=== PATIENT | female | born 2000 | race Caucasian/White ===

== ENCOUNTER 2023-04-04 09:33 | Emergency (ER) | payer MEDICAID, SELFPAY ==
[2023-04-04 09:50] VITALS: BP 144/94; PULSE 85; RESP 16; TEMP 37.1; O2SAT 99; BMI 31.0
--- NOTE | 2023-04-04 09:51 | CRLHL7_ITS ---
For Patients: As a result of the Century Cures Act, medical imaging exams and procedure reports are released immediately into your electronic medical record. You may view this report before your referring provider. If you have questions, please contact your health care provider. INDICATION: BLEEDING IN EARLY COMPARISON: None. TECHNIQUE: Real-time smallwood-scale imaging of the pelvis was performed. FINDINGS: Circumscribed structure within the right adnexa between the right ovary and uterus measures 1.8 x 1.5 x 1.5 cm containing a central area of fluid. Small amount of adjacent pelvic free fluid is present. No intrauterine . No abnormal blood flow. The left ovary and right ovary both appear normal. There is a corpus luteal right ovarian cyst measuring 1.9 x 1.2 x 1.6 cm. IMPRESSION: Right adnexal ectopic . Mild pelvic free fluid. No IUP. Called to Dr. Alvarado 10:56 a.m. 04/04/2023. Dictated by Pranay Melgar MD @ 04/04/2023 10:56:31 AM (Electronically Signed)
--- NOTE | 2023-04-04 09:53 | ED.GENADULT ---
HPI - General Adult General Time Seen by Provider: 09:53 Date Seen: 04/04/23 Chief complaint: Vaginal Bleeding Stated complaint: Abdominal pain Time Seen by Provider: 04/04/23 09:47 Source: patient Mode of arrival: ambulatory Limitations: no limitations History of Present Illness HPI narrative: Patient is a 23-year-old female who is about 7 weeks by last menstrual period February 14. She had a positive test. She has had bleeding vaginally over the day and some lower abdominal cramping. She has not passed any tissue or clots. She has had no fevers chills no other systemic signs of illness. The patient has had no chest pain breathing problem, she denies other issues. Related Data Home Medications Medication Instructions Recorded Confirmed folic acid 1 mg tablet 1 mg PO DAILY 04/04/23 04/04/23 Allergies Allergy/AdvReac Type Severity Reaction Status Date / Time No Known Drug Allergies Allergy Verified 04/04/23 09:52 Review of Systems Status of ROS: Reports: 6 or more systems reviewed and unremarkable except as noted in History and below PFSH PFS Social History Smoking Status: Never smoker How often do you have a drink containing alcohol: never How often do you have six or more drinks on one occasion: Never AUDIT-C Alcohol total score: 0 Non-prescribed substance use: denies use Exam Narrative: Exam Narrative: Objective: Patient's vital signs look unremarkable and slightly hypertensive She is tearful Alert orient x3 In no apparent distress otherwise Abdomen benign negative CVA tenderness Extremities are no edema neurologic nonfocal Abdomen is benign soft as mention no palpable masses. Const: Vital Signs, click to edit/add: Vital Signs - 24 hr 04/04/23 09:50 Temperature 98.8 F Pulse Rate [Pulse Oximeter] 85 Respiratory Rate 16 Blood Pressure [Ri t Upper Arm] 144/94 H Pulse Oximetry 99 Oxygen Delivery Me thod Room Air Course Vital Signs Vital signs: Initial Vital Signs Temperature 98.8 F 04/04/23 09:50 Temperature Source Temporal Artery Scan 04/04/23 09:50 Pulse Rate 85 04/04/23 09:50 Respiratory Rate 16 04/04/23 09:50 Blood Pressure 144/94 H 04/04/23 09:50 Blood Pressure Mean 110 H 04/04/23 09:50 Blood Pressure Position Supine 08/09/23 09:50 Pulse Oximetry 99 04/04/23 09:50 Oxygen Delivery Method Room Air 04/04/23 09:50 Vital Signs Temperature 98.8 F 04/04/23 09:50 Pulse Rate 85 04/04/23 09:50 Respiratory Rate 16 04/04/23 09:50 Blood Pressure 144/94 H 04/04/23 09:50 Pulse Oximetry 99 04/04/23 09:50 Oxygen Delivery Method Room Air 04/04/23 09:50 Temperature 98.8 F 04/04/23 09:50 Pulse Rate 85 04/04/23 09:50 Respiratory Rate 16 04/04/23 09:50 Blood Pressure 144/94 H 04/04/23 09:50 Pulse Oximetry 99 04/04/23 09:50 Oxygen Delivery Method Room Air 04/04/23 09:50 Medical Decision Making MDM Narrative Medical decision making narrative: 23-year-old female through an site interpreter reports that she had some vaginal bleeding some lower abdominal cramping. She is about 7 weeks estimated gestational age by LMP. Will check a quant quantitative HCG, blood type, laboratory studies, transvaginal ultrasound. She did have an OB appointment scheduled for today will review the studies and disposition pending findings. Addendum: 10:30 a.m. patient has a right ectopic per diesel technician. Have consulted with Dr. davis and jake get consult today. Addendum 10:59 a.m.: Doctor who here with site interpreter to discuss treatment options with the patient. Addendum 11:50 a.m.: Per , patient received Depo-Provera 150 im. Will get labs drawn per clinic order in 4 days, and follow up with primary care and OB. Orders will be placed from the clinic. Return if problems or concerns. Patient got patient got methotrexate today as well. Lab Data Labs: Lab Results 04/04/23 04/04/23 04/04/23 Range/Units 10:04 10:12 10:53 WBC 9.66 (4.50-11.00) K/uL RBC 4.65 (4.00-5.20) m/uL Hgb 13.6 (12.0-16.0) gm/dL Hct 40.5 (33.0-51.0) % MCV 87 (80-100) fL MCH 29 (26-34) pg MCHC 34 (32-36) gm/dL RDW Coeff of Jacquelyn 12.6 (11.5-15.5) % Plt Count 408 (140-440) K/uL Neut % (Auto) 67.2 (42.0-72.0) % Lymph % (Auto) 22.8 (20-44) % Bland % (Auto) 6.2 (0.0-11.0) % Eos % (Auto) 3.3 (0.0-7.0) % Baso % (Auto) 0.4 (0.0-3.0) % Neut # (Auto) 6.49 (1.7-7.0) K/uL Lymph # (Auto) 2.20 (0.90-2.90) K/uL Bland # (Auto) 0.60 (0.00-0.90) K/UL Eos # (Auto) 0.32 (0.00-0.50) K/uL Baso # (Auto) 0.04 (0.00-0.30) K/uL Abs Immat Gran (auto) 0.01 (0.00-0.30) K/uL Imm/Tot Granulo (auto) 0.1 % Sodium 138 (135-149) mmol/L Potassium 3.8 (3.6-5.1) mmol/L Chloride 104 (96-114) mmol/L Carbon Dioxide 27 (20-32) mmol/L BUN 9 (5-24) mg/dL Creatinine 0.6 (0.5-1.5) mg/dL Estimated Creat Clear 122.69 Estimated GFR 131 ml/min Glucose 98 (60-115) mg/dL Calcium 9.0 (8.4-10.6) mg/dL Total Bilirubin 0.5 (0.1-1.5) mg/dL Direct Bilirubin 0.0 (0.0-0.5) mg/dL AST 26 (12-35) U/L ALT 31 (4-35) U/L Alkaline Phosphatase 62 (40-150) U/L Total Protein 7.4 (6.0-8.3) g/dL Albumin 4.3 (3.3-5.0) g/dL HCG, Quant 105.36 mIU/mL Urine Color Red A (Yellow) Urine Appearance Cloudy A (Clear) Urine pH 5.5 (5.0-8.5) Ur Specific [place] >= 1.030 (1.000-1.030) Urine Protein 2+ A (Negative) Urine Glucose (UA) Negative (Negative) Urine Ketones Negative (Negative) Urine Blood 3+ A (Negative) Urine Nitrite Negative (Negative) Urine Bilirubin Negative (Negative) Urine Urobilinogen 0.2 (0.2-1.0) Ur Leukocyte Esterase Negative (Negative) Urine RBC >100 A (0-2) Urine WBC 0-2 (0-5) Ur Squamous Epith Cells Few (None-Few) Urine Bacteria Many A (None) Blood Type O Positive Discharge Plan Discharge Clinical Impression: Ectopic without intrauterine Patient Disposition: Home w/ Parent or Adult Condition: Stable Instructions: Ectopic (DC) Additional Instructions: Follow-up for labs in 4 days at the clinic as discussed, do not get for 3 months, Depo-Provera given now. This is per Dr. Alessandro lake order Activity Level: Light activity Prescriptions: No Action folic acid 1 mg tablet 1 mg PO DAILY Follow Up/Referrals: Provider,Not a Local [Primary Care Provider] - Stand Alone Forms: [employer] Info Instructions
[2023-04-04 10:10] LABS: Basophils Absolute Auto 0.04 K/uL (0.00-0.30); Basophils Percent Auto 0.4 % (0.0-3.0); Eosinophils Absolute Auto 0.32 K/uL (0.00-0.50); Eosinophils Percent Auto 3.3 % (0.0-7.0); Hematocrit 40.5 % (33.0-51.0); Hemoglobin* 13.6 gm/dL (12.0-16.0); Immature Granulocytes Abs Auto 0.01 K/uL (0.00-0.30); Immature Granulocytes Pct Auto 0.1 %; Lymphocytes Percent Auto 22.8 % (20-44); Mean Corpuscular HGB Conc 34 gm/dL (32-36); Mean Corpuscular Hemoglobin 29 pg (26-34); Mean Corpuscular Volume 87 fL (80-100); Monocytes Percent Auto 6.2 % (0.0-11.0); Neutrophils Absolute Auto 6.49 K/uL (1.7-7.0); Neutrophils Percent Auto 67.2 % (42.0-72.0); Platelet Count* 408 K/uL (140-440); RDW Coefficient of Variation % 12.6 % (11.5-15.5); Red Blood Count 4.65 m/uL (4.00-5.20); White Blood Count* 9.66 K/uL (4.50-11.00)
[2023-04-04 10:12] LABS: Slide Review Reflex No
[2023-04-04 10:20] LABS: Appearance Urine Cloudy (Clear); Bilirubin Urine Negative (Negative); Blood Urine 3+ (Negative); Color Urine Red (Yellow); Glucose Urine Negative (Negative); Ketones Urine Negative (Negative); Leukocyte Esterase Urine Negative (Negative); Nitrite Urine Negative (Negative); Protein Urine 2+ (Negative); Specific Gravity Urine >= 1.030 (1.000-1.030); Urobilinogen Urine 0.2 (0.2-1.0); pH Urine 5.5 (5.0-8.5)
[2023-04-04 10:38] LABS: Bacteria Urine Many; RBC Urine >100 (0-2); Squamous Epithelial Cell Urine Few (None-Few); WBC Urine 0-2 (0-5)
[2023-04-04 10:39] LABS: Chloride* 104 mmol/L (96-114); Sodium* 138 mmol/L (135-149)
[2023-04-04 10:40] LABS: Potassium* 3.8 mmol/L (3.6-5.1)
[2023-04-04 10:42] LABS: Blood Urea Nitrogen* 9 mg/dL (5-24); Carbon Dioxide* 27 mmol/L (20-32); Creatinine* 0.6 mg/dL (0.5-1.5); Est. Creatinine Clearance* 122.69; Estimated Glomerular Filt Rate 131 ml/min
[2023-04-04 10:43] LABS: Glucose* 98 mg/dL (60-115)
[2023-04-04 10:58] LABS: HCG Quantitative* 105.36 mIU/mL
--- NOTE | 2023-04-04 11:03 | ED.NURSE ---
Dr. Saba is in the room talking with the patient along with the icu tech.
[2023-04-04 11:09] LABS: Albumin* 4.3 g/dL (3.3-5.0)
[2023-04-04 11:12] LABS: Alanine Aminotransferase* 31 U/L (4-35); Alkaline Phosphatase* 62 U/L (40-150); Aspartate Amino Transferase* 26 U/L (12-35); Bilirubin Total* 0.5 mg/dL (0.1-1.5); Total Protein* 7.4 g/dL (6.0-8.3)
--- NOTE | 2023-04-04 11:45 | ED.NURSE ---
OB MD Saba in room with pt and staff interpreter to discuss Methotrexate information. Consent signed. Methotrexate binder instructions reviewed with staff interpreter and pt.
--- NOTE | 2023-04-04 12:02 | PM.GYNCN1 ---
NEWS SPECIALIST - CN: HPI Data of Consult Time Seen by Provider: 12:02 Date Seen: 04/04/23 Patient: Other Consult date: 04/04/23 Primary Care Provider: Not a Local Provider Consult Narrative Reason for consult: vaginal bleeding Narrative: Entire encounter was conducted with in-person program manager rn. Jessika Fallon is a 23 year old female who presented to the emergency room due to vaginal bleeding. She reports that she is , confirmed on a home test. Her last menstrual period was February 14, putting her at about 7 weeks. She reports the vaginal bleeding started today and she is having some mild lower uterine cramping. She has not passed any tissue or clot but is concerned she is having a miscarriage. Patient denies fever, chills, chest pain, SOB, n/v, headache, vision changes, severe abdominal pain, or dizziness. This is a wanted . 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 She got this time due to taking ovulation induction medication, does not know the specific one. TVUS today: Circumscribed structure within the right adnexa between the right ovary and uterus measures 1.8 x 1.5 x 1.5 cm containing a central area of fluid. Small amount of adjacent pelvic free fluid is present. No intrauterine . No abnormal blood flow. Final interpretation being right adnexal ectopic . Mild pelvic free fluid. cc:: CC: Review of Systems Status of ROS: Reports: 10 or more systems reviewed and unremarkable except as noted in History and below PFSH PFS Social History Smoking Status: Never smoker How often do you have a drink containing alcohol: never How often do you have six or more drinks on one occasion: Never AUDIT-C Alcohol total score: 0 Non-prescribed substance use: denies use Meds Home Medications and Allergies Home Medications Medication Instructions Recorded Confirmed Type folic acid 1 mg tablet 1 mg PO DAILY 04/04/23 04/04/23 History Allergies Allergy/AdvReac Type Severity Reaction Status Date / Time No Known Drug Allergies Allergy Verified 04/04/23 09:52 NEWS SPECIALIST - Exam Physical Exam: Vital signs: Temp Pulse Resp BP Pulse Ox O2 Del Method 98.8 F 85 16 144/94 H 99 Room Air 04/04/23 09:50 04/04/23 09:50 04/04/23 09:50 04/04/23 09:50 04/04/23 09:50 04/04/23 09:50 Narrative: Physical exam: General: Patient tearful after new of ectopic Psych: Alert and oriented x3, full affect HEENT: Normocephalic, atraumatic Neck: No cervical adenopathy, no thyromegaly Heart: Regular rate and rhythm, no murmur rub or gallop Lungs: Clear to auscultation bilaterally Abdomen: Normoactive bowel sounds, soft, no tenderness, rebound, or guarding, no masses, no hepatosplenomegaly, no hernias Skin: No lesions or rashes Lower extremities: No edema or erythema Pelvic exam: Mons normal, clitoris normal, urethral meatus normal. Labia minora and majora normal in appearance bilaterally. Perineum and anus normal appearance. Vaginal introitus normal appearance. Vagina pink and well rugated, small amount of dark blood in vaginal vault. Cervix closed with trace blood and mucus from cervical os but not active bleeding. Bimanual exam reveals uterus to be soft, nontender, mobile, anteverted, of normal size and texture. Gentle palpation of adnexal revealed no tenderness. NEWS SPECIALIST - Results Labs Labs: Short CBC 04/04/23 Range/Units 10:04 WBC 9.66 (4.50-11.00) K/uL Hgb 13.6 (12.0-16.0) gm/dL Hct 40.5 (33.0-51.0) % Plt Count 408 (140-440) K/uL BMP 04/04/23 10:04 Sodium 138 Potassium 3.8 Chloride 104 Carbon Dioxide 27 BUN 9 Creatinine 0.6 Glucose 98 Calcium 9.0 Liver Function 04/04/23 Range/Units 10:53 Total Bilirubin 0.5 (0.1-1.5) mg/dL Direct Bilirubin 0.0 (0.0-0.5) mg/dL AST 26 (12-35) U/L ALT 31 (4-35) U/L Alkaline Phosphatase 62 (40-150) U/L Albumin 4.3 (3.3-5.0) g/dL Urine 04/04/23 Range/Units 10:12 Urine Color Red A (Yellow) Urine Appearance Cloudy A (Clear) Urine pH 5.5 (5.0-8.5) Ur Specific [place] >= 1.030 (1.000-1.030) Urine Protein 2+ A (Negative) Urine Glucose (UA) Negative (Negative) Assessment and Plan Assessment and plan (1) Right tubal : Status: Acute Assessment and Plan: - Presenting symptoms: Vaginal bleeding - TVUS: Right adnexal ectopic - Beta HCG 04/04: 105.36 - Hgb/plt: 13.6/408 - Rest of CBC and CMP wnl - Blood type: O +, rhogam not indicated - Patient was tearful during our discussion as this is a very wanted . Unfortunately, I counseled her that an ectopic is not viable. Additionally, it poses a risk of rupture which can cause intra-abdominal bleeding. This can be very dangerous to the mother's health and thus she needs treatment. We discussed risks, benefits, and alternatives of methotrexate therapy versus surgical management. Patient is very invested in preserving her reproductive structures and favors methotrexate. I do think she is an excellent candidate for methotrexate therapy given the small size of the ectopic, her low beta hCG, and benign exam. - We reviewed in depth how methotrexate works. Methotrexate is a folic acid antagonist. It inhibits the hydro folate reductase which blocks the synthesis of thymidine and ultimately results in inhibition of DNA synthesis.It is an injection into the muscle of the hip to cause a termination of ectopic to prevent rupture, intra-abdominal bleeding, or further complications. Successful treatment with methotrexate can reduce the need for surgery and possibly preserve future fertility. I did inform her that despite treatment with the medication, there is a danger of rupture while the medication is working. If this were to happen, she would need emergent surgical intervention. If her ectopic were to rupture, there is a risk of hemorrhage, infection, damage to the nearby organs, delayed bleeding and reoperation, removal of the fallopian tubes and/or ovaries, infertility and complications associated with anesthesia. Additionally, it is vital that she adheres to the strict follow-up plan so that we make sure that the medication is working in terminating the ectopic . She has no absolute contraindications to methotrexate including hemodynamic instability, hypersensitivity, IUP, , blood dyscrasias, renal disease, active liver disease, pulmonary disease, peptic ulcer disease, immunodeficiency, alcoholism, or inability to follow-up. She also does not have any relative contraindications to methotrexate including cardiac activity, ectopic greater than 4 cm, high beta HCG (>5,000), or blood transfusion refusal - patient was counseled on side effects of methotrexate therapy including: Upset stomach, diarrhea, nausea, vomiting, dizziness, fatigue, sore mouth, headache, fever, chills, increased abdominal pain and vaginal bleeding. - Patient was counseled on avoiding alcohol (causes liver damage with combined with methotrexate), vaginal intercourse (increased risk of mechanical rupture), vitamins her food that is high in folic acid (decrease efficacy of methotrexate), sun exposure and tanning moves (hypersentivity of skin during methotrexate therapy), pain medications such as NSAIDs (can masks symptoms of rupture). - I also performed contraception counseling as patient is advised to not try and conceive until 3 months after completing methotrexate therapy. There is a theoretical risk of teratogenicity with methotrexate therapy. Embryopathy of methotrexate exposure has been described to include growth deficiency, microcephaly, broad nasal bridge, low-set ears, maxillary hypoplasia, short limbs, hypodactyly, syndactyly. She opted for 1 dose Depo-Provera 150 mg IM. This was given in the emergency room. - Consent signed for methotrexate - Plan: Methotrexate 50 mg/meter squared BSI IM x1 - Follow up: CBC, CMP, beta hCG ordered for day 4 and day 7. Appointments made for the patient. If there is greater than a 15% drop in beta hCG between day 4 and day 7, we will switch to monitoring her beta HCG weekly until undetectable. If there is not appropriate decrease in beta HCG, we can give her another dose of methotrexate 50 milligrams/meter sq BSA - ED precautions: Intense or significant increase in abdominal pain or one-sided pelvic pain, heavy vaginal bleeding, dizziness, fainting, sent onset of shoulder pain, sudden onset of significant lower back pain
[2023-04-04 12:30] VITALS: BP 140/83; PULSE 67; RESP 16; O2SAT 98
[2023-04-04] MEDS: METHOTREXATE 25 MG/ML inj 95 MG IM (12:35)
[2023-04-04 13:09] VITALS: BP 138/81; PULSE 63; RESP 16; O2SAT 99
== END 2023-04-04 13:10 | disposition home or self-care (01) ==
PROVIDERS: Emergency Provider Family Medicine
DX: O00.80 Other ectopic pregnancy without intrauterine pregnancy (principal)
CPT/HCPCS: 36415; 76817; 80048; 80076; 81001; 84702; 85025; 86900; 86901; 87086; 87186; 96372; 99283; 99284; 99285; T1013; J1050; J9250

== ENCOUNTER 2023-04-07 11:17 | Outpatient (CLI) | payer MEDICAID, SELFPAY ==
[2023-04-07 12:07] LABS: Basophils Absolute Auto 0.04 K/uL (0.00-0.30); Basophils Percent Auto 0.5 % (0.0-3.0); Eosinophils Absolute Auto 0.41 K/uL (0.00-0.50); Eosinophils Percent Auto 5.6 % (0.0-7.0); Hematocrit 37.4 % (33.0-51.0); Hemoglobin* 12.6 gm/dL (12.0-16.0); Lymphocytes Absolute Auto 2.39 K/uL (0.90-2.90); Lymphocytes Percent Auto 32.6 % (20-44); Mean Corpuscular HGB Conc 34 gm/dL (32-36); Mean Corpuscular Hemoglobin 29 pg (26-34); Mean Corpuscular Volume 87 fL (80-100); Monocytes Percent Auto 4.2 % (0.0-11.0); Neutrophils Absolute Auto 4.19 K/uL (1.7-7.0); Neutrophils Percent Auto 57.1 % (42.0-72.0); Platelet Count* 404 K/uL (140-440); RDW Coefficient of Variation % 12.3 % (11.5-15.5); Red Blood Count 4.32 m/uL (4.00-5.20); White Blood Count* 7.34 K/uL (4.50-11.00)
[2023-04-07 12:17] LABS: Slide Review Reflex No
[2023-04-07 12:22] LABS: Albumin* 4.2 g/dL (3.3-5.0)
[2023-04-07 12:23] LABS: Chloride* 103 mmol/L (96-114); Potassium* 4.1 mmol/L (3.6-5.1); Sodium* 138 mmol/L (135-149)
[2023-04-07 12:25] LABS: Bilirubin Total* 0.3 mg/dL (0.1-1.5); Carbon Dioxide* 25 mmol/L (20-32); Creatinine* 0.6 mg/dL (0.5-1.5); Estimated Glomerular Filt Rate 131 ml/min
[2023-04-07 12:26] LABS: Alanine Aminotransferase* 69 U/L (4-35); Alkaline Phosphatase* 52 U/L (40-150); Aspartate Amino Transferase* 32 U/L (12-35); Blood Urea Nitrogen* 12 mg/dL (5-24); Glucose* 120 mg/dL (60-115); Total Protein* 7.2 g/dL (6.0-8.3)
[2023-04-07 12:43] LABS: HCG Quantitative* 21.63 mIU/mL
== END 2023-04-07 11:18 | disposition home or self-care (01) ==
LOC: LAB 11:17
PROVIDERS: Visit Provider Obstetrics & Gynecology
DX: O00.90 Unspecified ectopic pregnancy without intrauterine pregnancy (principal)
CPT/HCPCS: 36415; 80053; 84702; 85025

== ENCOUNTER 2023-04-07 11:20 | Emergency (ER) | payer OTHER, SELFPAY ==
[2023-04-07 11:28] VITALS: BP 108/63; PULSE 61; RESP 12; TEMP 36.1; O2SAT 98; BMI 34.2
--- NOTE | 2023-04-07 11:39 | ED.GENADULT ---
HPI - General Adult General Chief complaint: Unspecified Complaint, Adult Stated complaint: atopic Time Seen by Provider: 04/07/23 11:32 History of Present Illness HPI narrative: this patient presented to the ER triage desk. She was initially registered as an ER patient. It turns out that this was a misunderstanding. She IS NOT here to be seen in the ER and doesn't want an ER evaluation. She came for labs only. Triage nurse is taking her to lab. I had reviewed her chart and recent records. she had been in ER on 04/04 and was diagnosed with an ectopic . seen by OB and treated with MTX. before I had evaluted the patient, I had ordered inital labs to eval for poss rupture. It turns out she is not concerned for rupture today adn does not want an ER evaluation. Therefore, I cancelled my orders. the patient was not seen as a patient in the ER today. Related Data Home Medications Medication Instructions Recorded Confirmed folic acid 1 mg tablet 1 mg PO DAILY 04/04/23 04/04/23 Allergies Allergy/AdvReac Type Severity Reaction Status Date / Time No Known Drug Allergies Allergy Verified 04/04/23 09:52 PFSH [facility] Social History Smoking Status: Never smoker How often do you have a drink containing alcohol: never How often do you have six or more drinks on one occasion: Never AUDIT-C Alcohol total score: 0 Non-prescribed substance use: denies use Exam Const: Vital Signs, click to edit/add: Vital Signs - 24 hr 04/07/23 11:28 Temperature 97.0 F L Pulse Rate [Pulse Oximeter] 61 Respiratory Rate 12 Blood Pressure [Ri ght Upper Arm] 108/63 Pulse Oximetry 98 Oxygen Delivery Me thod Room Air Course Vital Signs Vital signs: Initial Vital Signs Temperature 97.0 F L 04/07/23 11:28 Temperature Source Temporal Artery Scan 04/07/23 11:28 Pulse Rate 61 04/07/23 11:28 Pulse Rhythm Regular 04/07/23 11:28 Respiratory Rate 12 04/07/23 11:28 Blood Pressure 108/63 04/07/23 11:28 Blood Pressure Mean 78 04/07/23 11:28 Blood Pressure Position Sitting 04/07/23 11:28 Pulse Oximetry 98 04/07/23 11:28 Oxygen Delivery Method Room Air 04/07/23 11:28 Vital Signs Temperature 97.0 F L 04/07/23 11:28 Pulse Rate 61 04/07/23 11:28 Respiratory Rate 12 04/07/23 11:28 Blood Pressure 108/63 04/07/23 11:28 Pulse Oximetry 98 04/07/23 11:28 Oxygen Delivery Method Room Air 04/07/23 11:28 Temperature 97.0 F L 04/07/23 11:28 Pulse Rate 61 04/07/23 11:28 Respiratory Rate 12 04/07/23 11:28 Blood Pressure 108/63 04/07/23 11:28 Pulse Oximetry 98 04/07/23 11:28 Oxygen Delivery Method Room Air 04/07/23 11:28 Discharge Plan Discharge Prescriptions: No Action folic acid 1 mg tablet 1 mg PO DAILY Follow Up/Referrals: Provider,Not a Local [Primary Care Provider] -
--- NOTE | 2023-04-07 12:06 | ED.NURSE ---
Card Punching Machine Operator offered. Pt declines and requests this author to interpret for triage. Clarified with Pt after triage whether she intended to be seen by ED MD or if she solely wanted the ordered blood draw. Pt states she does not want to be seen by MD and only wants the blood draw. ED Oil Drilling Engineer staff notified, Lab notified of Pt arrival and verified lab orders present. Pt and spouse accompanied to lab. Pt aware she may present to ED at any time, if needed.
== END 2023-04-07 12:15 | disposition home or self-care (01) ==
PROVIDERS: Emergency Provider Emergency Medicine
DX: O00.90 Unspecified ectopic pregnancy without intrauterine pregnancy (principal)
CPT/HCPCS: 80048; 84702; 85025; 86850; 86900; 86901; 99281

== ENCOUNTER 2023-04-10 10:56 | Outpatient (CLI) | payer MEDICAID, SELFPAY | END 2023-04-10 10:57 | disposition home or self-care (01) | LOC: NFLDREF 20:43 | PROVIDERS: Visit Provider Obstetrics & Gynecology | DX: O20.9 Hemorrhage in early pregnancy, unspecified (principal) | CPT/HCPCS: 80053; 84702 ==

== ENCOUNTER 2023-04-17 10:06 | Outpatient (CLI) | payer MEDICAID, SELFPAY | END 2023-04-17 10:07 | disposition home or self-care (01) | PROVIDERS: Visit Provider Obstetrics & Gynecology | DX: O00.90 Unspecified ectopic pregnancy without intrauterine pregnancy (principal) | CPT/HCPCS: 84703 ==

== ENCOUNTER 2023-05-15 12:45 | Outpatient (CLI) | payer MEDICAID, SELFPAY | END 2023-05-15 12:46 | disposition home or self-care (01) | PROVIDERS: Visit Provider Obstetrics & Gynecology | DX: Z11.3 Encounter for screening for infections with a predominantly sexual mode of transmission (principal); Z12.4 Encounter for screening for malignant neoplasm of cervix | CPT/HCPCS: 87491; 87591 ==

== ENCOUNTER 2023-05-17 15:42 | Outpatient (CLI) | payer MEDICAID, SELFPAY ==
--- NOTE | 2023-05-17 16:00 | CRLHL7_ITS ---
For Patients: As a result of the Century Cures Act, medical imaging exams and procedure reports are released immediately into your electronic medical record. You may view this report before your referring provider. If you have questions, please contact your health care provider. CLINICAL HISTORY: Abnormal bleeding TECHNIQUE: 2D smallwood scale and color Doppler images were acquired of the pelvis using a transvaginal approach. FINDINGS: On transvaginal imaging, the myometrium has a mildly heterogeneous echotexture. The uterus measures 5.5 x 3.6 x 4.9 cm. The endometrial lining measures 5 mm in thickness. The left ovary measures 2.5 x 1.4 x 2.0 cm in size and the right ovary measures 3.2 x 2.2 x 1.8 cm. The ovaries demonstrate normal arterial and venous blood flow on color Doppler analysis. There are no suspicious fluid collections within the cul-de-sac. IMPRESSION: Endometrial thickness 5 millimeters. No uterine fibroid. No endometrial fluid. Dictated by Pranay Melgar MD @ 05/18/2023 11:40:36 AM (Electronically Signed)
== END 2023-05-17 15:43 | disposition home or self-care (01) ==
PROVIDERS: Visit Provider Obstetrics & Gynecology
DX: N93.9 Abnormal uterine and vaginal bleeding, unspecified (principal); R93.89 Abnormal findings on diagnostic imaging of other specified body structures
CPT/HCPCS: 76830; T1013

== ENCOUNTER 2023-12-10 19:08 | Emergency (ER) | payer MEDICAID, SELFPAY ==
[2023-12-10 19:20] VITALS: BP 117/70; PULSE 60; RESP 16; TEMP 36.1; O2SAT 100
--- NOTE | 2023-12-10 19:31 | PC.NURSE ---
Pt states she is 6 weeks , G2L0, ectopic in 2022. Denies discomfort, bleeding fevers. LMP per pt 10/03/23. Has first OB appt. January 01 in [place], unsure of OB Provider's name.
--- NOTE | 2023-12-10 19:54 | ED_ITS ---
HPI - Allergic Reaction General Time Seen by Provider: 19:54 Date Seen: 12/10/23 Chief complaint: Allergic Reaction Stated complaint: 6 weeks --rash Time Seen by Provider: 12/10/23 19:54 Source: patient Mode of arrival: ambulatory Limitations: no limitations History of Present Illness HPI narrative: Patient is a very pleasant 23-year-old female approximately 6 weeks who comes into the emergency room with about 36 hours of red spots on her lower extremities. Patient notes that yesterday morning she had some areas of redness that were very itchy on her lower extremities starting at her ankles at all the way up to her thighs. There are no spots on her arms chest or back. She has no spots on her face. She notes that the areas seem to be very red. She has not had this happen in the past. She denies fever or chills. She has not used any new lotions. She was outside on Sunday night in shorts. She does not have any pets at home. No new medications at this time in her 1st OB appointment is pending. Related Data Home Medications Medication Instructions Recorded Confirmed No Known Home Medications 12/10/23 12/10/23 Allergies Allergy/AdvReac Type Severity Reaction Status Date / Time No Known Drug Allergies Allergy Verified 05/15/23 12:49 Review of Systems Status of ROS Denies: 6 or more systems reviewed and unremarkable except as noted in History and below Const Denies: fever or chills ENMT Denies: throat pain or swelling of lips/tongue PFSH PFSH Social History Smoking Status: Never smoker Do you use any of these nicotine containing products: None Second hand tobacco smoke exposure: No How often do you have a drink containing alcohol: never How often do you have six or more drinks on one occasion: Never AUDIT-C Alcohol total score: 0 Non-prescribed substance use: denies use Exam Narrative: Exam Narrative: Patient is alert and oriented. Our exam and discussion is with the assistance of an distribution collection operator. Significant other present appears very loving and supportive External ears eyes nose clear. No evidence of swelling of the mucous membranes or face. No respiratory distress and no wheezing. Examination of the skin shows various areas on the lower extremities from the ankle area calf up onto the left thigh. There are no areas of erythema beneath the clothing. Examination of upper arms and chest and back as well as neck and face show no lesions. The lesions themselves very in size. It appears to be a very subtle tiny fluid filled area in the center on a very large at erythematous well-demarcated area. For the most part this is macular with the exception of the very center area. I do not see any for isaiah or lines within the skin. There was area of scabbing on the left posterior lateral thigh. Const: Vital Signs, click to edit/add: Vital Signs - 24 hr 12/10/23 19:20 Temperature 97.0 F L Pulse Rate [Pulse Oximeter] 60 Respiratory Rate 16 Blood Pressure [Ri t Upper Arm] 117/70 Pulse Oximetry 100 Oxygen Delivery Me thod Room Air Documenting provider has reviewed patient's vital signs: yes Course Vital Signs Vital signs: Initial Vital Signs Temperature 97.0 F L 12/10/23 19:20 Temperature Source Temporal Artery Scan 12/10/23 19:20 Pulse Rate 60 12/10/23 19:20 Pulse Rhythm Regular 12/10/23 19:20 Respiratory Rate 16 12/10/23 19:20 Blood Pressure 117/70 12/10/23 19:20 Blood Pressure Mean 85 12/10/23 19:20 Blood Pressure Position Sitting 12/10/23 19:20 Pulse Oximetry 100 12/10/23 19:20 Oxygen Delivery Method Room Air 12/10/23 19:20 Vital Signs Temperature 97.0 F L 12/10/23 19:20 Pulse Rate 60 12/10/23 19:20 Respiratory Rate 16 12/10/23 19:20 Blood Pressure 117/70 12/10/23 19:20 Pulse Oximetry 100 12/10/23 19:20 Oxygen Delivery Method Room Air 12/10/23 19:20 Temperature 97.0 F L 12/10/23 19:20 Pulse Rate 60 12/10/23 19:20 Respiratory Rate 16 12/10/23 19:20 Blood Pressure 117/70 12/10/23 19:20 Pulse Oximetry 100 12/10/23 19:20 Oxygen Delivery Method Room Air 12/10/23 19:20 MDM - Allergic Reaction MDM Narrative Medical decision making narrative: 1. Bug bites-most likely this represents of bug bites likely naps or no-seeums. Patient was wearing shorts and shoes on Sunday night and woke up with this on Sunday morning. She does not have pets at home to think this might be flea bites. They are very itchy. I would recommend topical cream or lotion such as calamine or Benadryl itch. Given the fact that this is likely not a mosquito the itching may last up to a week. Patient will follow-up with her primary MD if she is not improving. If these areas a lesions spread to closed areas or she has difficulty breathing would recommend return to the emergency room. 2. Disposition-home with . Return as needed. Medical Records Attestation: I reviewed the patient's medical records. Discharge Plan Discharge Patient Disposition: Home, Self-Care Additional Instructions: It appears that you have some bug bites on your legs. I suggest the use of a topical lotion or cream. Calamine lotion or Benadryl itch cream are 2 such options. And an Aveeno oatmeal bath may also be helpful. Try your best not to itch these areas. Follow-up with your primary MD if they are not improving. I do suspect that these will continue throughout the week. Return to the emergency room for worsening symptoms. Parece que tiene algunas picaduras de insectos en las piernas. Sugiero el uso de raudel loci?n o crema t?pica. La loci?n de calamina (Calamine lotion) o la crema para picar Benadryl son dos de esas opciones. Y un ba?o de aveno con Aveeno tambi?n puede ser ?til. Haz todo lo posible por no picar en estas ?reas. Zuleima raudel umair de seguimiento con sanches doctor en la clinica si no est? mejorando. Sospecho que continuar?n julio toda la semana. Regrese a la yessy de emergencias si los s?ntomas empeoran. Prescriptions: No Action No Known Home Medications Follow Up/Referrals: Provider,Not a Local [Primary Care Provider] - Stand Alone Forms: [employer] Info Instructions
== END 2023-12-10 20:47 | disposition home or self-care (01) ==
PROVIDERS: Emergency Provider Family Medicine
DX: R21 Rash and other nonspecific skin eruption (principal); W57.XXXA Bitten or stung by nonvenomous insect and other nonvenomous arthropods, initial encounter; Z3A.01 Less than 8 weeks gestation of pregnancy
CPT/HCPCS: 99282; 99283

== ENCOUNTER 2023-12-11 11:11 | Emergency (ER) | payer MEDICAID, SELFPAY ==
[2023-12-11 11:21] VITALS: BP 119/73; PULSE 66; RESP 18; TEMP 36.3; O2SAT 98; BMI 31.5
--- NOTE | 2023-12-11 11:30 | ED.PREGNANCY ---
HPI - General Chief complaint: Vaginal Bleeding Stated complaint: 6 weeks --cramping, bleeding Time Seen by Provider: 12/11/23 11:30 Source: patient, RN notes reviewed and burn nurse Mode of arrival: ambulatory Limitations: no limitations History of Present Illness HPI Narrative: This 23-year-old female is coming in with vaginal spotting noted today. She states she went to the bathroom earlier and noticed blood with wiping. She notes that when she went to leave a urine here that there was more blood. She has noticed some dysuria. This is her 2nd . She has had a right ectopic before. She thinks her LMP was October 31. She has had a home positive test. She is having some lower abdominal cramping. She has noted erythematous lesions on her lower extremities, these are extremely itchy, she was seen in the ED last night. She does note she has been outside. She does show me erythematous lesions on her right lower extremity that do seem to be consistent with some type of bug bite. Her ectopic was treated with methotrexate. MD Complaint: abdominal pain and vaginal bleeding Patient : Yes Related Data Home Medications Medication Instructions Recorded Confirmed No Known Home Medications 12/10/23 12/10/23 Allergies Allergy/AdvReac Type Severity Reaction Status Date / Time No Known Drug Allergies Allergy Verified 05/15/23 12:49 Review of Systems Narrative: As per HPI. PFSH PFSH Social History Smoking Status: Never smoker Do you use any of these nicotine containing products: None Second hand tobacco smoke exposure: No How often do you have a drink containing alcohol: never How often do you have six or more drinks on one occasion: Never AUDIT-C Alcohol total score: 0 Non-prescribed substance use: denies use Exam Const: Vital Signs, click to edit/add: Vital Signs - 24 hr 12/11/23 11:21 Temperature 97.4 F L Pulse Rate [Right Pulse Oximeter] 66 Respiratory Rate 18 Blood Pressure [Ri ght Upper Arm] 119/73 Pulse Oximetry 98 Oxygen Delivery Me thod Room Air Patient is alert, interactive, no apparent stress. Face atraumatic, sclera clear. CV regular rate and rhythm no murmur. Lungs are clear, good air entry, no tachypnea. Abdomen is soft, nontender, no organomegaly noted, no rebound or guarding, not distended. Pelvic exam deferred at this point. Documenting provider has reviewed patient's vital signs: yes Course Course ED Course: Patient is O positive from previous blood work here. Will get CBC and quantitative hCG, urinalysis today. Will order limited OB ultrasound. This certainly could be threatened , miscarriage. Ultrasound and lab work will help us delineate this process further. Reevaluation(s) Time of Reevaluation #1: 13:05 Reevaluation #1: Have reviewed with patient that her hCG is negative, ultrasound showing no evidence of or ectopic . She states she took 3 different tests, they were different brands, tested different days. Reviewed with her that I do not necessarily have a full explanation for that but she indeed is not now. Vital Signs Vital signs: Initial Vital Signs Temperature 97.4 F L 12/11/23 11:21 Temperature Source Temporal Artery Scan 12/11/23 11:21 Pulse Rate 66 12/11/23 11:21 Respiratory Rate 18 12/11/23 11:21 Blood Pressure 119/73 12/11/23 11:21 Blood Pressure Mean 88 12/11/23 11:21 Blood Pressure Position Sitting 12/11/23 11:21 Pulse Oximetry 98 12/11/23 11:21 Oxygen Delivery Method Room Air 12/11/23 11:21 Vital Signs Temperature 97.4 F L 12/11/23 11:21 Pulse Rate 66 12/11/23 11:21 Respiratory Rate 18 12/11/23 11:21 Blood Pressure 119/73 12/11/23 11:21 Pulse Oximetry 98 12/11/23 11:21 Oxygen Delivery Method Room Air 12/11/23 11:21 Temperature 97.4 F L 12/11/23 11:21 Pulse Rate 66 12/11/23 11:21 Respiratory Rate 18 12/11/23 11:21 Blood Pressure 119/73 12/11/23 11:21 Pulse Oximetry 98 12/11/23 11:21 Oxygen Delivery Method Room Air 12/11/23 11:21 MDM - OB/Uterine Contractions Lab Data Attestation: I reviewed the patient's lab results. Labs: Lab Results 12/11/23 12/11/23 Range/Units 11:48 12:15 WBC 7.61 (4.50-11.00) K/uL RBC 4.57 (4.00-5.20) m/uL Hgb 13.5 (12.0-16.0) gm/dL Hct 40.1 (33.0-51.0) % MCV 88 (80-100) fL MCH 30 (26-34) pg MCHC 34 (32-36) gm/dL RDW Coeff of Jacquelyn 12.7 (11.5-15.5) % Plt Count 415 (140-440) K/uL Neut % (Auto) 59.2 (42.0-72.0) % Lymph % (Auto) 28.6 (20-44) % Caroline % (Auto) 5.8 (0.0-11.0) % Eos % (Auto) 5.5 (0.0-7.0) % Baso % (Auto) 0.8 (0.0-3.0) % Neut # (Auto) 4.50 (1.7-7.0) K/uL Lymph # (Auto) 2.18 (0.90-2.90) K/uL Caroline # (Auto) 0.40 (0.00-0.90) K/UL Eos # (Auto) 0.42 (0.00-0.50) K/uL Baso # (Auto) 0.06 (0.00-0.30) K/uL Abs Immat Gran (auto) 0.01 (0.00-0.30) K/uL Imm/Tot Granulo (auto) 0.1 % HCG, Quant < 2.39 mIU/mL Urine Color Brown A (Yellow) Urine Appearance Cloudy A (Clear) Urine pH 5.5 (5.0-8.5) Ur Specific [place] >= 1.030 (1.000-1.030) Urine Protein 2+ A (Negative) Urine Glucose (UA) Negative (Negative) Urine Ketones Negative (Negative) Urine Blood 3+ A (Negative) Urine Nitrite Negative (Negative) Urine Bilirubin 1+ A (Negative) Urine Urobilinogen 0.2 (0.2-1.0) Ur Leukocyte Esterase Negative (Negative) Urine RBC >100 A (0-2) Urine WBC 0-2 (0-5) Ur Squamous Epith Cells None (None-Few) Urine Bacteria None (None) Imaging Data US OB limited: Attestation: I have reviewed the pertinent imaging results. Radiologist's impression: Patient: REVA BROWN Facility:?[facility] Patient ID:?[id number] Site Patient ID:?[id number]. Site :?2002 Study:?US OB Pelvis OB TV-12/11/2023 12:49:59 PM Ordering Physician:?EVELYN SANTOS M.D. Final Report: INDICATION: Spotting early COMPARISON: None. TECHNIQUE: Real-time smallwood-scale imaging of the pelvis was performed. FINDINGS: No intrauterine or ectopic . Right ovary measures 2.0 x 1.8 x 1.6 cm. Left ovary measures 3.1 x 1.3 x 2.2 cm. Endometrium measures 1.7 cm. IMPRESSION: No intrauterine or ectopic . Dictated by Pranay Melgar MD @ 12/11/2023 1:02:29 PM (Electronic Signature) Discharge Plan Discharge Clinical Impression: Vaginal bleeding Patient Disposition: Home, Self-Care Condition: Stable Instructions: Abnormal (Dysfunctional) Uterine Bleeding (ED) Additional Instructions: There is no evidence of at this time. Do recommend follow up in clinic within the next 3-5 days for recheck. They can recheck in hCG in clinic if there is any question. You may have more heavy bleeding and crampy abdominal pain like a menstrual cycle. Activity Level: Activity as Tolerated Discharge Diet: Regular Prescriptions: No Action No Known Home Medications Follow Up/Referrals: Provider,Not a Local [Primary Care Provider] - Stand Alone Forms: [employer] Info Instructions
--- NOTE | 2023-12-11 11:31 | US_ITS ---
Patient: REVA BROWN Facility:?[facility] Patient ID:?[id number] Site Patient ID:?[id number]. Site :?2002 Study:?US-OB Pelvis OB TV-12/11/2023 12:49:59 PM Ordering Physician:?BUDDY JONES M.D. Final Report: INDICATION: Spotting early COMPARISON: None. TECHNIQUE: Real-time smallwood-scale imaging of the pelvis was performed. FINDINGS: No intrauterine or ectopic . Right ovary measures 2.0 x 1.8 x 1.6 cm. Left ovary measures 3.1 x 1.3 x 2.2 cm. Endometrium measures 1.7 cm. IMPRESSION: No intrauterine or ectopic . Dictated by Pranay Melgar MD @ 12/11/2023 1:02:29 PM Signed by:?Pranay Melgar MD @12/11/2023 1:02:29 PM (Electronic Signature)
[2023-12-11 11:58] LABS: Basophils Absolute Auto 0.06 K/uL (0.00-0.30); Basophils Percent Auto 0.8 % (0.0-3.0); Eosinophils Absolute Auto 0.42 K/uL (0.00-0.50); Eosinophils Percent Auto 5.5 % (0.0-7.0); Hematocrit 40.1 % (33.0-51.0); Hemoglobin* 13.5 gm/dL (12.0-16.0); Immature Granulocytes Abs Auto 0.01 K/uL (0.00-0.30); Immature Granulocytes Pct Auto 0.1 %; Lymphocytes Absolute Auto 2.18 K/uL (0.90-2.90); Lymphocytes Percent Auto 28.6 % (20-44); Mean Corpuscular HGB Conc 34 gm/dL (32-36); Mean Corpuscular Hemoglobin 30 pg (26-34); Mean Corpuscular Volume 88 fL (80-100); Monocytes Percent Auto 5.8 % (0.0-11.0); Neutrophils Percent Auto 59.2 % (42.0-72.0); Platelet Count* 415 K/uL (140-440); RDW Coefficient of Variation % 12.7 % (11.5-15.5); Red Blood Count 4.57 m/uL (4.00-5.20); White Blood Count* 7.61 K/uL (4.50-11.00)
[2023-12-11 12:00] LABS: Slide Review Reflex No
[2023-12-11 12:29] LABS: HCG Quantitative* < 2.39 mIU/mL
[2023-12-11 12:34] LABS: Appearance Urine Cloudy (Clear); Bilirubin Urine 1+ (Negative); Blood Urine 3+ (Negative); Color Urine Brown (Yellow); Glucose Urine Negative (Negative); Ketones Urine Negative (Negative); Leukocyte Esterase Urine Negative (Negative); Nitrite Urine Negative (Negative); Protein Urine 2+ (Negative); Specific Gravity Urine >= 1.030 (1.000-1.030); Urobilinogen Urine 0.2 (0.2-1.0); pH Urine 5.5 (5.0-8.5)
[2023-12-11 12:52] LABS: RBC Urine >100 (0-2); WBC Urine 0-2 (0-5)
== END 2023-12-11 13:39 | disposition home or self-care (01) ==
PROVIDERS: Emergency Provider Family Medicine
DX: R21 Rash and other nonspecific skin eruption (principal); W57.XXXA Bitten or stung by nonvenomous insect and other nonvenomous arthropods, initial encounter; Z3A.01 Less than 8 weeks gestation of pregnancy
CPT/HCPCS: 36415; 76817; 81001; 84702; 85025; 99283; 99284

== ENCOUNTER 2024-02-12 09:42 | Outpatient (CLI) | payer MEDICAID, SELFPAY ==
--- NOTE | 2024-02-12 09:45 | CRLHL7_ITS ---
For Patients: As a result of the Cures Act, medical imaging exams and procedure reports are released immediately into your electronic medical record. You may view this report before your referring provider. If you have questions, please contact your health care provider. OB ULTRASOUND INDICATION: Ultrasound for dates and viability. LMP: 12/12/2023. TJ by LMP: 09/17/2023. GA: 8 w, 6 d. Previous US: No. CRL: 1.6 cm. 8 w 0 d. TJ: 09/23/2023. FHR: 163 BPM. Gestational sac: 3.0 cm. Appears within normal limits. Yolk sac: 2.9 mm. Appears within normal limits. Right ovary: Within normal limits. 3.5 x 1.9 x 2.2 cm. Left ovary: N/V. IMPRESSION: 1. Single viable intrauterine . 2. Measurements are consistent with dates. Roel Carroll M.D. Body/Diagnostic Radiologist [email or web address] JIN/malcolm fowler/Dictated by: Roel Carroll MD @ 02/13/2024 2:06:00 PM (Electronically Signed)
== END 2024-02-12 09:43 | disposition home or self-care (01) ==
LOC: US 09:44
PROVIDERS: Visit Provider Physician Assistant
DX: Z34.91 Encounter for supervision of normal pregnancy, unspecified, first trimester (principal); Z3A.08 8 weeks gestation of pregnancy
CPT/HCPCS: 76817; T1013

== ENCOUNTER 2024-02-12 11:19 | Outpatient (CLI) | payer MEDICAID, SELFPAY ==
[2024-02-12 18:04] LABS: Chlamydia DNA Amplified* NOT DETECTED (No Detected); GC DNA Amplified* NOT DETECTED (No Detected)
== END 2024-02-12 11:20 | disposition home or self-care (01) ==
PROVIDERS: Visit Provider Physician Assistant
DX: Z34.91 Encounter for supervision of normal pregnancy, unspecified, first trimester (principal); Z3A.08 8 weeks gestation of pregnancy
CPT/HCPCS: 76817; 82565; 82570; 84156; 84450; 84460; 84520; 86592; 86703; 86704; 86706; 86762; 86787; 86803; 86850; 86900; 86901; 87086; 87340; 87491; 87591

== ENCOUNTER 2024-04-29 09:05 | Outpatient (CLI) | payer MEDICAID, SELFPAY ==
--- NOTE | 2024-04-29 09:15 | CRLHL7_ITS ---
For Patients: As a result of the Century Cures Act, medical imaging exams and procedure reports are released immediately into your electronic medical record. You may view this report before your referring provider. If you have questions, please contact your health care provider. INDICATION: Evaluate anatomy. COMPARISON: 02/12/2024 TECHNIQUE: Real time smallwood scale imaging of the fetus was performed as well as color Doppler analysis of the umbilical vessels. FINDINGS: Sonographic imaging demonstrates a single living intrauterine gestation. Fetus demonstrates a regular cardiac rate of 155 beats per minute. Fetus has a vertex position. The placenta lies posteriorly without evidence of placenta previa. Placental edge 2.3 cm from the internal cervical os. Amniotic fluid volume appears normal. Single deepest vertical pocket: 4.2 cm. The cervix is closed and measures 4.4 cm in length. The composite ultrasound gestational age is calculated at 19 weeks 2 days with an estimated sonographic due date of 09/21/2024. The estimated weight is 283 grams which lies at the 36th %. The following biometric measurements were obtained: Biparietal diameter: 4.5 cm/19 weeks 3 days 53rd% Head circumference: 16.8 cm/19 weeks 3 days 42nd% Abdominal circumference: 13.6 cm/19 weeks 1 day 33rd% Femur length: 3.0 cm/19 weeks 3 days 42nd% The HC/AC ratio measures: 1.23 range (1.09-1.26) On anatomic survey, there is a normal appearance of the cerebral ventricles, cavum septi pellucidi, cisterna magna and cerebellum. The nose, lips, and facial profile appear normal. The cervical, thoracic and lumbar spine are well visualized and appear normal. There is a normal four-chamber heart view and the left and right ventricular outflow tracts appear normal. The diaphragm and stomach appear normal. The kidneys and bladder also appear normal. There is a normal three-vessel cord and cord insertion site. The four extremities appear normal. IMPRESSION: Normal OB ultrasound exam with concordance of clinical and sonographic dating. No intrinsic abnormalities noted on anatomic survey. Dictated by Pranay Melgar MD @ 04/29/2024 12:04:17 PM (Electronically Signed)
== END 2024-04-29 09:06 | disposition home or self-care (01) ==
LOC: US 09:05
PROVIDERS: Visit Provider Physician Assistant
DX: Z34.92 Encounter for supervision of normal pregnancy, unspecified, second trimester (principal); Z3A.19 19 weeks gestation of pregnancy
CPT/HCPCS: 76805; T1013

== ENCOUNTER 2024-06-24 10:52 | Outpatient (CLI) | payer MEDICAID, SELFPAY | END 2024-06-24 10:53 | disposition home or self-care (01) | LOC: NFLDREF 06-26 06:12 | PROVIDERS: Visit Provider Midwife | DX: Z34.93 Encounter for supervision of normal pregnancy, unspecified, third trimester (principal); Z3A.28 28 weeks gestation of pregnancy | CPT/HCPCS: 86592 ==

== ENCOUNTER 2024-08-19 11:02 | Outpatient (CLI) | payer MEDICAID, SELFPAY ==
[2024-08-20 11:27] LABS: Strep B DNA Probe POSITIVE (Negative)
[2024-08-20 11:39] LABS: Strep B Susceptibility Needed? No
== END 2024-08-19 11:03 | disposition home or self-care (01) ==
PROVIDERS: Visit Provider Advanced Practice Midwife
DX: Z34.93 Encounter for supervision of normal pregnancy, unspecified, third trimester (principal); Z3A.36 36 weeks gestation of pregnancy
CPT/HCPCS: 87081; 87653

== ENCOUNTER 2024-08-25 05:59 | Outpatient (CLI) | payer MEDICAID, SELFPAY ==
[2024-08-25 06:21] VITALS: TEMP 37.4
[2024-08-25 06:32] VITALS: BP 133/75; PULSE 108; O2SAT 93
[2024-08-25 06:33] VITALS: PULSE 110; O2SAT 94
[2024-08-25 06:52] LABS: SARS PCR* Negative SARS-CoV-2 (Negative)
[2024-08-25] MEDS: ACETAMINOPHEN 500 MG TABLET 1000 MG PO (08:24)
[2024-08-25 08:40] LABS: Appearance Urine Slightly Cloudy (Clear); Bilirubin Urine Negative (Negative); Blood Urine Trace-intact (Negative); Color Urine Yellow (Yellow); Glucose Urine Negative (Negative); Ketones Urine Negative (Negative); Leukocyte Esterase Urine Negative (Negative); Nitrite Urine Negative (Negative); Protein Urine 1+ (Negative); Specific Gravity Urine 1.025 (1.000-1.030); Urobilinogen Urine 0.2 (0.2-1.0)
[2024-08-25 08:51] LABS: Bacteria Urine Moderate; RBC Urine 0-2 (0-2); Squamous Epithelial Cell Urine Moderate (None-Few)
--- NOTE | 2024-08-25 09:03 | PC.OBNST ---
NST Note NST Note Start: 08/25/24 06:08 Freq: ONCE Status: Active Protocol: Document 08/25/24 08:45 HCR (Rec: 08/25/24 09:01 HCR [id number]) NST Note 2 Para (# of births) 0 EDC 09/16/24 Gestational Age In Weeks & Days 36 Weeks & 6 Days Patient Presented with Complaint(s) of Contractions/cramping,Other Other Complaints See OB assessment - contractions, fever, chills, dry cough Reactive Yes Appropriate for Gestational Age Yes RN Yulissa Elder RN Date 08/25/24 Reactive Yes Appropriate for Gestational Age Yes ISAC De Jesus CNM Date 08/25/24 OB NST charge Yes Complete NST Note via Write Note Yes The provider's electronic signature indicates the NST is reactive/appropriate for gestational age. *Note to provider: If an addendum is required, open the patient's chart and click on the note under the Nurse/Allied Health tab.
[2024-08-25 13:01] LABS: PCR FLU A POSITIVE PCR FLU A (Negative); PCR FLU B Negative PCR FLU B (Negative); PCR RSV Negative PCR RSV (Negative); SARS PCR* Negative SARS-CoV-2 (Negative)
== END 2024-08-25 08:47 | disposition home or self-care (01) ==
LOC: OB OUT 05:59 → OB 06:00
PROVIDERS: Advanced Practice Midwife; Visit Provider Advanced Practice Midwife
DX: Z34.93 Encounter for supervision of normal pregnancy, unspecified, third trimester (principal); Z3A.37 37 weeks gestation of pregnancy
CPT/HCPCS: 59025; 81001; 81003; 87086; 87631; 87635; G0463; A9270

== ENCOUNTER 2024-09-14 18:43 | Inpatient (IN) | payer MEDICAID, SELFPAY ==
[2024-09-14] VITALS (8 sets, daily range): BP systolic 130–139; BP diastolic 68–87; PULSE 60–77; RESP 16; TEMP 36.8–37.1; O2SAT 98–99; BMI 41.5
[2024-09-14 18:20] LABS: Amnisure Rom* POSITIVE
--- NOTE | 2024-09-14 19:38 | P.LDBA_ITS ---
Subjective History of Present Illness Date Seen: 09/14/24 Narrative: Patient is being admitted to Labor and Delivery for SROM at 1700 at home. She is a 24 year old at 39.5 weeks gestation. Her full history and physical was dictated by Manuel Anderson CNM on 08/26/24. Please see this for details. On admission her first blood pressure was elevated 139/87 and recheck was 130/71. Reports seeing stars occasionally at home which she noticed last evening for the first time. Specific Issues/Plans G2 P 0 Partner:?[]? Guatemalan-speaking H&P completed by Manuel Anderson CNM on 08/26/24? # GBS positive, antibiotics in labor # Rubella non-immune MMR ? Imaging:? 1st trimester: 02/12/2024: 8w6d SLIUP consistent with dates Anatomy scan: 04/29/2024:Normal OB ultrasound exam with concordance of clinical and sonographic dating. No intrinsic abnormalities noted on anatomic survey. Others: []? ? COVID: declined Flu: declined Tdap:?07/08/24 RSV:???08/05/24 32wk Mental Health:? 34wk hgb:?11.9 Pap: [(Only high-risk abnormal pap in problem list)] OB - Problem Based A/P Additional Plan (1) SROM (spontaneous rupture of membranes): Status: Acute (2) 39 weeks gestation of : Status: Acute (3) Positive GBS test: Status: Acute Plan Assessment:?? at 39.5 weeks gestation?? GBS positive??? Labor type: Spontaneous Rupture of Membranes, Not in labor?at this time Category 1 FHR pattern.? complicated by: Positive GBS, Rubella non-immune Plan:?? * ?Admit to L & D? * IV access: SL * Monitoring per policy: intermittent? * Candidate for analgesia of choice.? Planning epidural for pain management * Expectant management at this time Reviewed risks and benefits of waiting for labor vs augmentation including increased risk of infection. Pt would like to wait at this time. * GBS prophylaxis initiated for GBS positive status once more regular contractions. Will treat with antibiotics per protocol. * Monitor blood pressures. Consider labs if continue to be elevated.? * Patient encouraged to reposition and ambulate to promote physiologic labor and . * Anticipate ? Delivery/Labor/Induction Plan Plan: expectant management OB Exam Physical Exam Vital signs: Pulse BP Pulse Ox 60 130/71 98 09/14/24 19:32 09/14/24 19:32 09/14/24 17:52 Narrative: Vitals Reviewed Constitutional:? Alert and oriented x3 HEENT:? Normocephalic, atraumatic Neck:? Supple Lungs:? Clear to auscultation bilaterally Heart:? Regular rate and rhythm, no murmur, rub or gallop Abdomen:? Soft, nontender, and gravid. Vertex by Valentín's, confirmed with cervical exam. Extremities:? No edema or erythema Cervix: 1 cm/30%/-4 station/vertex/anterior/firm Triana score: 3 NST: 145 bpm/moderate variability/+accelerations/-decelerations/mild contractions Detailed Labor and Delivery Exam Patient Gravid: Yes Fetus (Single) Amniotic Membrane Status: SROM Amniotic Membrane Fluid Description: Clear
[2024-09-14 19:52] LABS: Basophils Absolute Auto 0.04 K/uL (0.00-0.30); Basophils Percent Auto 0.4 % (0.0-3.0); Eosinophils Absolute Auto 0.37 K/uL (0.00-0.50); Eosinophils Percent Auto 3.7 % (0.0-7.0); Hemoglobin* 12.2 gm/dL (12.0-16.0); Immature Granulocytes Abs Auto 0.06 K/uL (0.00-0.30); Immature Granulocytes Pct Auto 0.6 %; Lymphocytes Absolute Auto 2.44 K/uL (0.90-2.90); Lymphocytes Percent Auto 24.5 % (20-44); Mean Corpuscular HGB Conc 33 gm/dL (32-36); Mean Corpuscular Hemoglobin 28 pg (26-34); Mean Corpuscular Volume 83 fL (80-100); Monocytes Percent Auto 7.4 % (0.0-11.0); Neutrophils Absolute Auto 6.31 K/uL (1.7-7.0); Neutrophils Percent Auto 63.4 % (42.0-72.0); Platelet Count* 353 K/uL (140-440); RDW Coefficient of Variation % 14.7 % (11.5-15.5); Red Blood Count 4.44 m/uL (4.00-5.20); White Blood Count* 9.96 K/uL (4.50-11.00)
[2024-09-14 20:07] LABS: Slide Review Reflex No
[2024-09-14] MEDS: miSOPROStoL 25 MCG/0.25 TABLET PO ×2 (20:15→23:13)
--- NOTE | 2024-09-14 20:21 | PM.OBPNL ---
Subjective Date Seen: 09/14/24 Narrative: ?Jessika is coping well with labor pain/contractions. ?Her partner is with her for support. ?She would like to use medication to help move her labor forward. We discussed oral Cytotec overnight for cervical ripening. Reviewed R/B/A with them and they would like to start this now. Objective Exam: VSS, afebrile General Appearance:? Calm, cooperative. ?No acute distress. ? Psychiatric Exam: Alert and oriented, appropriate affect Abdomen: Gravid Ctx: ? rare irregular. ? Mild FHTs: ?Baseline: 150. ? ? Variability: moderate. ?Accels: +. ? ?Decels: ?-. SVE: deferred Membranes: ?SROM ?09/14/24 at 1700 clear fluid Vital Signs: Last Vital Signs Pulse 60 09/14/24 19:32 BP 130/71 09/14/24 19:32 Pulse Ox 98 09/14/24 17:52 Plan Plan: Assessment:?? at 39.5 weeks gestation?? GBS positive Patient is coping well with challenges of labor.?? Labor type: Augmented, Not in labor, Cervical ripening with oral Cytotec Category 1 FHR pattern.? complicated by: GBS positive, Rubella non-immune Labor complicated by: NA? Plan:?? Oral Cytotec per protocol Strongly encouraged medications for sleep overnight, she is declining these at this time. Antibiotic prophylaxis treatment per protocol once contractions are more frequent and regular Continue with routine intrapartum cares as ordered.?? Patient encouraged to move and change positions to promote physiologic labor and .?? Nonpharmacologic comfort measures per patient preference. Candidate for analgesia of choice if desired. Anticipate progress to NVD. ?
[2024-09-15] VITALS (63 sets, daily range): BP systolic 97–144; BP diastolic 55–85; PULSE 57–113; RESP 16–20; TEMP 36.6–37.1; O2SAT 88–100
[2024-09-15] MEDS: miSOPROStoL 25 MCG/0.25 TABLET PO ×2 (02:15→05:13)
[2024-09-15] MEDS: AMPICILLIN 2 GM in 0.9 % SODIUM CHLORIDE Mini-bag 100 ML IVPB (05:13)
[2024-09-15] MEDS: LACTATED RINGERS 1000 ML 1,000 ML 125 ML IV ×2 (05:13→13:45)
--- NOTE | 2024-09-15 06:38 | PM.OBPNL ---
Subjective Date Seen: 09/15/24 Narrative: ?Jessika is coping with labor pain/contractions. ?Her partner is with her for support. ?She has been in bed overnight attempting to sleep between contractions. This morning she is painful with them and needing to breath through them. Overnight the RN reported she was unwilling to get up out of bed. She was encouraged to get up and walk or try sitting on the birthing ball for comfort and pain management.? She agreed to get up and walk in the room, RN assisting her with this now. Objective Exam: VSS, afebrile General Appearance:? Calm, cooperative. ?No acute distress. ? Psychiatric Exam: Alert and oriented, appropriate affect Abdomen: Gravid Ctx: ?Q 2-5 min apart. ? ?Moderate ? FHTs: ?Baseline: 145. ? ? Variability: moderate. ?Accels: +. ? ?Decels: ?rare variable. SVE: deferred at this time. Per RN last check 2.5/60/-2 Membranes: ?SROM clear at 1700 Vital Signs: Last Vital Signs Temp 98.5 F 09/15/24 06:11 Pulse 57 L 09/15/24 05:10 Resp 18 09/15/24 06:11 BP 136/80 09/15/24 05:10 Pulse Ox 98 09/14/24 17:52 Plan Plan: Assessment:?? at 39.6 weeks gestation?? GBS positive Patient is coping with challenges of labor.?? Labor type: Augmented, Early labor? Category 2 FHR pattern.? complicated by: GBS positive, Rubella non-immune Labor complicated by: SROM without onset of contractions Plan:?? Pt has received 4 doses of Cytotec, is not luann regularly and has made cervical change. Revaluate as needed Antibiotic prophylaxis treatment per protocol, first dose has been given Continue with routine intrapartum cares as ordered.?? Patient encouraged to move and change positions to promote physiologic labor and .?? Nonpharmacologic comfort measures per patient preference. Candidate for analgesia of choice if desired. Planning epidural, not desiring placement at this time. Anticipate progress to NVD. ?
[2024-09-15] MEDS: AMPICILLIN 1 GM in 0.9 % SODIUM CHLORIDE Mini-bag 100 ML IVPB (09:16)
[2024-09-15] MEDS: OXYTOCIN 30 unit/500 ML in NS 30 UNIT/500 ML BAG IVPB (09:17)
--- NOTE | 2024-09-15 09:31 | P.OBPN_ITS ---
Subjective Time Seen by Provider: 00:15 Date Seen: 09/15/24 Narrative: Jessika is a 24 yo at 39 6/7 weeks gestation that presented yesterday evening with ROM, clear fluid, at 1700. She was feeling very mild, irregular contractions at that time. She has received 4 doses of oral cytotec for labor augmentation. She has been resting in bed overnight but this morning has ambulated and using the birthing ball. She is coping well with labor pain. She is considering an epidural but is not yet ready for one. She has consider nitrous or IV fentanyl if needed. She is supported in labor by her and sister in law. She has no questions at this time. [employer] Incident Responder present in person for this visit. Objective Exam: Objective: Constitutional: Alert and oriented x3, mild/moderate distress, coping well Vital signs stable, see nurse documentation Abdomen: gravid, contractions palpate moderate with contractions and soft between Cervix: Deferred due to ROM NST: 125 bpm/moderate variability/15x15 accelerations/no decelerations/contractions every 1-6, irregular Vital Signs: Last Vital Signs Temp 98.5 F 09/15/24 07:18 Pulse 61 09/15/24 07:18 Resp 18 09/15/24 07:18 BP 137/74 09/15/24 07:18 Pulse Ox 98 09/14/24 17:52 Plan Plan: Assessment:?? at 39.6 weeks gestation?? GBS positive Patient is coping with challenges of labor.?? Labor type: Augmented, Early labor? Category 1 FHR pattern.? complicated by: GBS positive, Rubella non-immune Labor complicated by: PPROM Plan:?? Routine intrapartum cares as ordered. Pt has received 4 doses of Cytotec, is not luann regularly and has made cervical change. Plan pitocin augmentation at 0915. Monitoring per policy, continuous with?augmentation Planning epidural for pain management. Candidate for analgesia of choice.?? Patient encouraged to reposition and ambulate to promote physiologic labor and .? GBS prophylaxis initiated for GBS positive status. Will continue treat with antibiotics per protocol. Anticipate ?
[2024-09-15] MEDS: fentaNYL 100 MCG/2 ML inj IVP (09:42)
[2024-09-15] MEDS: LIDOCAINE 2% (PF) 5 ML VIAL EPIDURAL (10:53)
[2024-09-15] MEDS: ROPIVACAINE 0.2% 100 ml 100 ML 12 MG EPIDURAL (10:54)
--- NOTE | 2024-09-15 11:01 | PM.ANBPRC ---
[facility] Medical History Right tubal (04/04/23) ?O00.101 - Right tubal without intrauterine (ICD-10) Social History Narrative: Occupation: Homemaker. Marital status: Significant other. Latter-Day/cultural needs: no. Chemical or radiation exposure: no. Pre- tobacco use: no. Pre- alcohol use: no. Current tobacco use: no. Current alcohol use: no. Recreational drug use: no. Dietary restrictions: no. Blood transfusion acceptable in an emergency: yes. PSYCHOSOCIAL HISTORY: History of depression or currently depressed: no. Current or past physical, emotional, or sexual mistreatment: no. Problems that will make it hard to make it to appointments: no. What is your current living situation?: I presently have a place to live Problems where you live: no known problems In the past 12 months, utilities in danger of being shut off: no In past 12 months, lack of transportation kept you from medical appts, meetings, work, or getting things needed for daily living: no In the past 12 mos, have been you worried that your food would run out before you had money to buy more?: never true In the past 12 mos, the food you bought just didn't last and you didn't have money to buy more?: never true Smoking Status: Never smoker Do you use any of these nicotine containing products: None Second hand tobacco smoke exposure: No How often do you have a drink containing alcohol: never How often do you have six or more drinks on one occasion: Never AUDIT-C Alcohol total score: 0 Non-prescribed substance use: denies use How often does anyone, including family, friends and others, physically hurt you: never How often does anyone, including family, friends and others, insult or talk down to you: never How often does anyone, including family, friends and others, threaten you with harm: never How often does anyone, including family, friends and others, scream or curse at you: never Meds Home Medications and Allergies Home Medications ?Medication ?Instructions ?Recorded ?Confirmed ?Type docosahexaenoic acid 200 mg 1 mg PO DAILY 02/12/24 09/14/24 History capsule ( DHA) Allergies Allergy/AdvReac Type Severity Reaction Status Date / Time No Known Drug Allergies Allergy Verified 09/14/24 17:53 Results Labs Labs: Laboratory Results - last 24 hr 09/14/24 09/14/24 18:08 19:41 WBC 9.96 RBC 4.44 Hgb 12.2 Hct 37.0 MCV 83 MCH 28 MCHC 33 RDW Coeff of Jacquelyn 14.7 Plt Count 353 Neut % (Auto) 63.4 Lymph % (Auto) 24.5 Walton % (Auto) 7.4 Eos % (Auto) 3.7 Baso % (Auto) 0.4 Neut # (Auto) 6.31 Lymph # (Auto) 2.44 Walton # (Auto) 0.70 Eos # (Auto) 0.37 Baso # (Auto) 0.04 Abs Immat Gran (auto) 0.06 Imm/Tot Granulo (auto) 0.6 Membrane Rupture POSITIVE Blood Type O Positive Antibody Screen NEGATIVE Vital Signs Vital Signs: Last Vital Signs Temp 97.8 F 09/15/24 09:54 Pulse 70 09/15/24 10:56 Resp 20 09/15/24 09:54 BP 121/60 09/15/24 10:56 Pulse Ox 98 09/15/24 10:59 Weight: 102.965 kg Height: 157.48 cm Anesthesia Procedures Epidural Insertion Patient Location: OB Start Time: 10:30 Stop Time: 11:30 Start Date: 09/15/24 Stop Date: 09/15/24 Reason for Block: procedure for pain Patient Position: sitting Performed By: Blade Nguyen Preanesthetic Checklist: IV checked, risks and benefits discussed, monitors and equipment checked, pre-op evaluation, timeout performed and anesthesia consent Prep: chlorhexidine gluconate Monitoring: blood pressure monitoring, continuous pulse oximetry and heart rate Approach: midline Vertebral Space: lumbar (1-5) Epidural Technique: VANESSA saline Needle Type: Tuohy needle Injection Technique: continuous catheter Needle gauge: 17 Needle Length (cm): 10 cm Needle Insertion Depth (cm): 8 Catheter Gauge: 19 Catheter Type: multi-orifice Catheter at skin depth (cm): 18 Test Dose Result: negative and lidocaine 1.5% with epinephrine 1 to 200,000
[2024-09-15] MEDS: miSOPROStoL 800 MCG/4 TABLET PR (14:29)
--- NOTE | 2024-09-15 14:50 | W.PM.OBVAGDE ---
OB Procedure Vag Delivery Mother Details Mother Details: The patient is a 24 year-old, 2, now Para 1011, admitted on 09/14/24 at 39 5/7 weeks gestation. : 1 Para: 1 Weeks Gestation: 39.6 Admission Date: 09/14/24 Additional Details Amniotic Membrane Status: SROM Amniotic Membrane Rupture Date: 09/14/24 Amniotic Membrane Rupture Time: 17:15 Amniotic Membrane Fluid Description: Clear Analgesia/Anesthesia Type: Epidural Waterbirth: No Pitcoin: Yes (Only as high as 3mu, AMTSL) Intrapartal Events: Labor Augmentation Delivery augmentation: pitocin (and cytotec) Labor Onset: 09:30 Complete: 11:46 Pushin:54 Heart: heart tones during second stage were reassuring throughout labor with variable decelerations that resolved between contractions. Moderate variability and accelerations present throughout. Delivery Details Delivery Date: 09/15/24 Delivery Time: 14:13 Route of delivery: Gender: Female Viability: Alive; Heart Rate Present Position at Delivery: OA Delivery Details: Patient was admitted for spontaneous ROM or PROM. She was augmented with 4 doses of Cytotec and Pitocin. She started to become uncomfortable with the start of Pitocin and progressed rapidly to complete. SROM occured at 1715 on 09/14 with clear fluid. Patient was complete at 1146 and pushing at 1154. of a viable female at 1413 in semi-reclined position on the bed. Vertex delivered OA. Slow delivery of head foreshadowed a shoulder. Nuchal x1 was identified but unable to reduce, delivered through. Shoulder dystocia was then identified with Joanne and Suprapubic pressure was applied. Total time from head to delivery of body was 55 seconds. Body delivered easily and without incident. passed to mothers abdomen with a vigorous cry. Cord was clamped and cut at > 1 minutes before was taken to warmer by nurse for further assessment. APGARS were 7 at one minute and 9 at five minutes respectively. Mouth was bulb suctioned. Intact placenta with a 3 vessel cord delivered spontaneously at 1413. Fundus firm but intermittent tricklying with boggy uterus was noted when assessing perineum. Red rubber cath used to empty bladder for 300 cc of urine. Vaginal 1st degree identified, repair not indicated as it was well approximated and hemostatic. QBL 400 cc. Mother and baby stable; mother plans to breastfeed. Infant weight 7lb 10oz. 1 Minute Interval Total Score: 7 5 Minute Interval Total Score: 9 Additional Details Shoulder Dystocia: Yes (55 seconds, resolved with Joanne and Suprapubic) Placenta Delivery Time: 14:19 Placental Delivery Description: Spontaneous Delivery repair: Vicryl Procedure Done: Global Blood Loss: 400 Laceration: Vaginal - 1st Degree (not repaired) Blood Loss Measurement Type: QBL (400) Sponge/Need Count Correct: Yes Cord Vessel Description: 3 Vessels, Nuchal Cord (x1), Tight and Delivered through Event Summary Status: Mother and were stable after delivery. Disposition: floor
[2024-09-15] MEDS: METHYLERGONOVINE MALEATE 0.2 MG/ML INJ IM (15:25)
[2024-09-15] MEDS: IBUPROFEN 600 MG TABLET PO (17:05)
[2024-09-16 05:00] VITALS: BP 109/60; PULSE 88; RESP 16; TEMP 36.8; O2SAT 98
[2024-09-16] MEDS: IBUPROFEN 600 MG TABLET PO (05:06)
[2024-09-16 07:59] VITALS: BP 99/55; PULSE 80; RESP 18; TEMP 36.7; O2SAT 98
--- NOTE | 2024-09-16 08:00 | P.DS_ITS ---
DS: Providers Provider Date Seen: 09/16/24 Date of admission: 09/14/24 18:43 Primary care physician: Not a Local Provider Admitting Clinician: Nayana Anderson CNM Consults: 09/14/24 17:52 Consult to Shovel Loader Operator [CONS] Routine Comment: Reason for Consult:: Community Worker Needed Attending Physician on discharge: Benjamin TELLEZ APRN Date of Discharge: 09/16/24 DS: Diagnosis Discharge Diagnosis (1) (normal spontaneous vaginal delivery): Status: Acute (2) Language barrier: Status: Acute (3) care and examination of lactating mother: Status: Acute Exam Narrative: Exam Narrative: GENERAL APPEARANCE:? normal affect, alert, no distress MOOD:? appropriate CHEST:? clear to auscultation HEART:? regular rate and rhythm ABDOMEN:? soft, non-tender the uterine fundus is At Umbilicus, Midline and is appropriate for the stage of recovery. PERINEUM:? minimal edema of the perineum, there is a Perineal Laceration that is well approximated with no erythema or abnormal discharge EXTREMITIES:? normal and minimal edema Const: Vital Signs, click to edit/add: Vital Signs - 24 hr 09/15/24 09:54 09/15/24 10:29 09/15/24 10:32 Temperature 97.8 F Pulse Rate 68 Pulse Rate [Blood Pressure Cuff] Respiratory Rate 20 Blood Pressure 137/85 Blood Pressure [Le ft Arm] Pulse Oximetry 99 Oxygen Delivery Me od 09/15/24 10:34 09/15/24 10:39 09/15/24 10:44 Temperature Pulse Rate Pulse Rate [Blood Pressure Cuff] Respiratory Rate Blood Pressure Blood Pressure [Le ft Arm] Pulse [facility]xim[facility] 98 98 [facility] 10:45 09/15/24 10:47 09/15/24 10:49 Temperature Pulse Rate 65 66 67 Pulse Rate [Blood Pressure Cuff] Respiratory Rate Blood Pressure 121/67 119/55 L 118/60 Blood Pressure [Le ft Arm] Pulse Oximetry 97 [facility] 09[facility] 10:53 09/15/24 10:54 09/15/24 10:56 Temperature Pulse Rate 70 68 70 Pulse Rate [Blood Pressure Cuff] Respiratory Rate Blood Pressure 128/62 128/59 L 121/60 Blood Pressure [Le ft Arm] Pulse Oximetry 99 [facility] 10:59 09/15/24 11:02 09/15/24 11:04 Temperature Pulse Rate 66 Pulse Rate [Blood Pressure Cuff] Respiratory Rate Blood Pressure 121/59 L Blood Pressure [Le ft Arm] Pulse Oximetry 98 98 Oxygen Delivery Me thod 09/15/24 11:04 09/15/24 11:07 09/15/24 11:09 Temperature 97.8 F Pulse Rate 67 Pulse Rate [Blood Pressure Cuff] Respiratory Rate 17 Blood Pressure 117/58 L Blood Pressure [Le ft Arm] Pulse Oximetry 97 Oxygen Delivery Me thod 09/15/24 11:12 09/15/24 11:14 09/15/24 11:16 Temperature Pulse Rate 68 65 Pulse Rate [Blood Pressure Cuff] Respiratory Rate Blood Pressure 116/62 117/64 Blood Pressure [Le ft Arm] Pulse Oximetry 98 Oxygen Delivery Me thod 09/15/24 11:19 09/15/24 11:22 09/15/24 11:24 Temperature Pulse Rate 70 Pulse Rate [Blood Pressure Cuff] Respiratory Rate Blood Pressure 116/62 Blood Pressure [Le ft Arm] Pulse Oximetry 98 98 Oxygen Delivery Me thod 09/15/24 11:27 09/15/24 11:29 09/15/24 11:34 Temperature Pulse Rate 67 Pulse Rate [Blood Pressure Cuff] Respiratory Rate Blood Pressure 124/58 L Blood Pressure [Le ft Arm] Pulse Oximetry 98 99 Oxygen Delivery Me thod 09/15/24 11:37 09/15/24 11:39 09/15/24 11:44 Temperature Pulse Rate 86 Pulse Rate [Blood Pressure Cuff] Respiratory Rate Blood Pressure 125/71 Blood Pressure [Le ft Arm] Pulse Oximetry 99 98 Oxygen Delivery Me thod 09/15/24 11:49 09/15/24 11:53 09/15/24 11:54 Temperature Pulse Rate 85 Pulse Rate [Blood Pressure Cuff] Respiratory Rate Blood Pressure 129/64 Blood Pressure [Le ft Arm] Pulse Oximetry 98 99 Oxygen Delivery Me thod 09/15/24 11:59 09/15/24 12:04 09/15/24 12:08 Temperature Pulse Rate 78 Pulse Rate [Blood Pressure Cuff] Respiratory Rate Blood Pressure 132/60 Blood Pressure [Le ft Arm] Pulse Oximetry 100 99 91 Oxygen Delivery Me thod 09/15/24 12:09 09/15/24 12:13 09/15/24 12:23 Temperature Pulse Rate 70 Pulse Rate [Blood Pressure Cuff] Respiratory Rate Blood Pressure 132/63 Blood Pressure [Le ft Arm] Pulse Oximetry 99 88 [facility] 12:52 09/15/24 13:13 09/15/24 13:22 Temperature 98.1 F Pulse Rate 77 74 Pulse Rate [Blood Pressure Cuff] Respiratory Rate 18 Blood Pressure 127/62 128/65 Blood Pressure [Le ft Arm] Pulse Oximetry [facility] 13:39 09/15/24 14:25 09/15/24 14:37 Temperature Pulse Rate 70 76 80 Pulse Rate [Blood Pressure Cuff] Respiratory Rate Blood Pressure 132/66 118/57 L 118/61 Blood Pressure [Le ft Arm] Pulse Oximetry [facility] 14:52 09/15/24 15:07 09/15/24 15:22 Temperature Pulse Rate 78 68 73 Pulse Rate [Blood Pressure Cuff] Respiratory Rate Blood Pressure 122/60 123/55 L 124/66 Blood Pressure [Le ft Arm] Pulse Oximetry Oxygen Delivery [facility] 09/15/24 15:37 09/15/24 15:52 09/15/24 16:06 Temperature 98.2 F Pulse Rate 75 79 Pulse Rate [Blood Pressure Cuff] 86 Respiratory Rate 17 Blood Pressure 126/67 124/60 Blood Pressure [Le ft Arm] Pulse Oximetry Oxygen Delivery [facility] 09/15/24 16:07 09/15/24 16:22 09/15/24 16:23 Temperature Pulse Rate 69 72 Pulse Rate [Blood Pressure Cuff] Respiratory Rate 18 Blood Pressure 128/70 130/71 Blood Pressure [Le ft Arm] Pulse Oximetry [facility] 16:37 09/15/24 17:09 09/15/24 20:38 Temperature 98.2 F 98.1 F Pulse Rate 81 Pulse Rate [Blood Pressure Cuff] 86 75 Respiratory Rate 17 16 Blood Pressure 144/64 H Blood Pressure [Le ft Arm] 121/78 97/58 L Pulse Oximetry Oxygen Delivery [facility] Room Air 09/15/24 23:32 09/16/24 05:00 Temperature 97.8 F 98.2 F Pulse Rate Pulse Rate [Blood Pressure Cuff] 89 88 Respiratory Rate 18 16 Blood Pressure Blood Pressure [Le ft Arm] 103/66 109/60 Pulse Oximetry 98 Oxygen Delivery Me thod Room Air OB - DS: Summary Hospital Course Hospital Course: The patient feels well.? The pain is well controlled with current medications.? She has no new complaints.? Urinary output is adequate and she is voiding without difficulty.? Has a good appetite, is tolerating a general diet, is passing flatus, and has had a bowel movement.? Has scant amount of rubra lochia.? She is ambulating well. She is and reports it is going well.?Planning Nexplanon for child spacing. Plan: Discharge home with baby.? Follow up in 2 weeks and 6 weeks.? , may see if needed? Hgb 10.0. ? ? Labs WNL or stable with trending? ? ? Call for signs/symptoms of preeclampsia? ? Peripartum Data Infant delivery method: Vaginal Laceration description: Periurethral - 1st Degree (not repaired) Episiotomy description: None complications: none Gender: Female Discharge Plan: Home Status at Discharge Overall status at discharge: patient is progressing back to baseline Time Spent with Patient Time attestation: Total time spent providing and/or coordinating discharge services: Time spent: Less than 30 minutes Discharge Plan Discharge Disposition: Home, Self-Care Date of Admission: 09/14/24 18:43 Attending Provider on Discharge: Aarti Oliver Primary Care Provider: Provider,Not a Local Condition: Stable Anticipated Discharge Date/Time: 09/16/24 12:00 Discharge Medications: New acetaminophen 500 mg Tablet 1,000 mg PO Q6H PRNQty: 60 0RF docusate sodium 100 mg Capsule 100 mg PO DAILY Qty: 60 0RF ibuprofen 600 mg Tablet 600 mg PO Q6H PRNQty: 60 0RF Continued DHA 200 mg capsule 1 mg PO DAILY Discharge Orders: Discharge Order (Routine); Ordered 09/16/24 Ordered By: Aarti Oliver Patient Education: OB [place] [facility], OB Vaginal/Breast Feeding Additional Instructions: Discharge instructions were reviewed with the patient including signs and symptoms of infection and home going medications Nothing vaginally for 6 weeks: no tampons or intercourse Do not drive while taking narcotic pain medication(s) Off Work or School for 8 weeks Symptoms to report to doctor: * Bleeding that saturates more than one pad per hour * Passing clots larger than the size of a golf ball * Pain not relieved by prescribed medication * Fever above 100.4 degrees Fahrenheit * A foul vaginal odor * Difficulty in emotions, mood, and functions * Thoughts of hurting yourself and/or * Painful, reddened area in your breast * Any drainage, redness, or tenderness in your IV/epidural site * Severe headache that doesn't improve after taking medications * Changes in vision, including temporary loss of vision, blurred vision, and/or light sensitivity * Upper abdominal pain (usually under ribs on the right side) * Decrease in urination or painful, frequent urinating * Chest pain * Shortness of breath * Tenderness or pain with redness and/swelling in the calf(s) of your leg Optional 2-week visit: discuss infant feeding concerns, review control options and screen for anxiety/depression. 6-week visit for an annual exam. consultation services are available to all mothers and babies for the first year after delivery.? To make an appointment, please call [phone]. For pain control of perineum, breast and pelvic pain, take 600 mg Ibuprofen every 6 hours as needed by mouth or 1000 mg acetaminophen (Tylenol) every 6 hours by mouth as needed. You can alternate these so you are taking something every 3 hours as needed. A heating pad can also be used for your abdomen or breasts. You may also take docusate sodium up to twice daily to soften your stools and help to prevent constipation. You may wean off of it when your stools return to normal. Activity Level: Activity as Tolerated and No strenuous activity Discharge Diet: Regular Follow Up Appointments: [facility] [Provider Group] Forms: MyHealth Info Instructions
--- NOTE | 2024-09-16 09:20 | PM.ANPOST ---
Post Anesthesia Note Post Anesthesia Note Patient seen: Inpatient Respiratory Status: adequate Cardiovascular Status: adequate Mental Status: baseline Pain: adequate Temp: baseline Anesthetic awareness: N/A Complications: none Follow care: none
[2024-09-16 12:24] VITALS: BP 105/69; PULSE 70; RESP 16; TEMP 36.7; O2SAT 98
[2024-09-16] MEDS: LANOLIN CREAM 1 APPLIC TOPICAL (16:17)
[2024-09-17 10:36] LABS: Rapid Plasma Reagin (RPR) Non Reactive (Non Reactive)
== END 2024-09-16 16:50 | disposition home or self-care (01) | DRG 807 ==
LOC: OB OUT 18:43 → OB 18:43
PROVIDERS: Advanced Practice Midwife; Admitting Provider Advanced Practice Midwife; Visit Provider Advanced Practice Midwife
DX: O99.824 Streptococcus B carrier state complicating childbirth (principal); Z37.0 Single live birth; O62.2 Other uterine inertia; O66.0 Obstructed labor due to shoulder dystocia; O70.0 First degree perineal laceration during delivery; Z3A.39 39 weeks gestation of pregnancy
CPT/HCPCS: 01967; 36415; 59200; 84112; 85018; 85025; 86592; 86850; 86900; 86901; G0463; T1013; A9270; J0290; J2210; J2371; J2795; J3010; J7120